=== PATIENT | male | born 1990 | race Caucasian/White ===

== ENCOUNTER 2016-09-19 18:32 | Emergency (ER) | payer OTHER ==
[2016-09-19 18:38] VITALS: BP 121/56; PULSE 69; TEMP 98.5; BMI 20.7
[2016-09-19] MEDS ORDERED: DIPHTH,PERTUSS(ACELL),TET 0.5 ML DISP.SYRIN IM ONE (19:15)
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
== END 2016-09-19 19:42 | disposition home or self-care (01) ==
LOC: JERFT 18:32
PROC: 0CQ1XZZ Repair Lower Lip, External Approach (ICD-10-PCS; principal; 2016-09-19)
DX: S01.511A Laceration without foreign body of lip, initial encounter (principal); Y04.2XXA Assault by strike against or bumped into by another person, initial encounter; X58.XXXA Exposure to other specified factors, initial encounter; Y93.89 Activity, other specified; Y92.89 Other specified places as the place of occurrence of the external cause
CPT/HCPCS: 90715; 99281-25

== ENCOUNTER 2016-09-26 17:28 | Emergency (ER) | payer OTHER ==
[2016-09-26 17:32] VITALS: BP 112/59; PULSE 70; TEMP 98.3; BMI 20.5
--- NOTE | 2016-09-26 18:30 | PDOC ---
Suture Removal/Wound Check HPI - History of Present Illness Chief Complaint: Suture/Staple Removal(Here) Stated Complaint: STITCHES REMOVAL Time Seen by Provider: 09/26/16 17:55 History Source: Yes: Patient Exam Limitations: Yes: No Limitations Treated at: [facility] Date of Last ED visit: 09/19/16 - Previous ED Treatment Type of procedure performed on last visit: Yes: Laceration Repair Tetanus Immunization: Yes: Up to Date Antibiotics Prescribed: Yes Past History - Travel Traveled outside of the country in the last 30 days: No Close contact w/someone who was outside of country & ill: No - Past Medical History Allergies/Adverse Reactions: Allergies No Known Allergies Allergy (Verified 09/26/16 17:29) Home Medications: Ambulatory Orders NK [No Known Home Medication] 09/26/16 General: Yes: no pertinent history Surgical History: Yes: No Surgical History - Family History Significant Family History: Yes: no pertinent family hx - Immunization History Immunizations Up to Date: Yes - Social History Smoking Status: Never smoked Suture Removal/Wound Check PE - Physical Exam Laceration/Wound Check Symptoms: reports: None Current Severity Level: None Maximum Severity Level: None Pain Localization: None *Review of Systems - Review of Systems Constitutional: No: Symptoms Reported Integumentary: No: Symptoms Reported, Erythema Neurological: No: Symptoms reported, Paresthesia, Tingling, Tremors Medical Decision Making - Medical Decision Making 09/26/16 18:32 Patient here for suture removal, 6 sutures removed from right lateral upper lip without incident, there is no vocalized suture irritation, no bleeding. Patient tolerated well. To follow up with dentist for missing tooth. *DC/Admit/Observation/Transfer Diagnosis at time of Disposition: Visit for suture removal - Discharge Dispostion Disposition: HOME Condition at time of disposition: Good Admit: No - Patient Instructions Additional Instructions: Please keep area clean and dry for the next 24 hours as much as possible, refrain from tension area. Follow-up with dentist.
== END 2016-09-26 18:40 | disposition home or self-care (01) ==
LOC: JERFT 17:28
DX: Z48.02 Encounter for removal of sutures (principal)
CPT/HCPCS: 99281-25